=== PATIENT | female | born 2005 | race Two or more races ===

== ENCOUNTER 2025-03-08 17:51 | Emergency (ER) | payer OTHER ==
[~2025-03-08] VITALS: Ht 160 cm; Wt 68.2 kg
[2025-03-08 17:54] VITALS: TEMP 98.4
[2025-03-08] MEDS: IBUPROFEN 600 MG TABLET PO ONE (18:31)
[2025-03-08] MEDS: ACETAMINOPHEN 500 MG TABLET PO ONE (18:31)
[2025-03-08 18:45] LABS: PLATELET COUNT (AUTO) 188 K/uL (150-450); RED BLOOD CELL COUNT(AUTO) 4.45 MIL/uL (4.00-5.20); RED CELL DISTRIBUTION WIDTH 14.4 % (11.5-14.5); WHITE BLOOD COUNT (AUTO) 5.2 K/uL (4.5-11.0)
[2025-03-08 18:55] LABS: CALCIUM, TOTAL 9.0 mg/dL (8.8-10.5); CREATININE 0.81 mg/dL (0.60-1.30); GLOMERULAR FILTR. RATE CALC > 60 mL/min (>60); GLUCOSE,RANDOM 103 mg/dL (70-110); SODIUM SERUM 139 mmol/L (136-145); UREA NITROGEN, BLOOD 9 mg/dL (7-18)
[2025-03-08] MEDS ORDERED: ONDA-104 PO (20:42)
[2025-03-08] MEDS ORDERED: IBUP-45 PO (20:42)
[2025-03-08] MEDS ORDERED: ACET-66 PO (20:42)
[2025-03-08 21:10] VITALS: BP 125/77; PULSE 88; RESP 19; O2SAT 98
== END 2025-03-08 21:39 | disposition home or self-care (01) ==
LOC: EMS 17:51
DX: R51.9 Headache, unspecified (principal); F41.9 Anxiety disorder, unspecified; F17.210 Nicotine dependence, cigarettes, uncomplicated
CPT/HCPCS: 80048; 84703; 85025; 93005; 99284